=== PATIENT | female | born 1970 | race Caucasian/White ===

== ENCOUNTER → 2024-01-21 | Outpatient (REF) | LOC: M LAB 11:24 | PROVIDERS: ATTEND Family Medicine | DX: Z02.1 Encounter for pre-employment examination (principal) ==

== ENCOUNTER → 2024-02-11 | Outpatient (REF) ==
[2024-02-11 09:51] LABS: RSV AMPLIFICATION NEGATIVE (NEGATIVE)
== END ==
LOC: M EMP 08:54
PROVIDERS: ATTEND Family Medicine
DX: Z11.52 Encounter for screening for COVID-19 (principal)